=== PATIENT | female | born 1935 | race Caucasian/White ===

== ENCOUNTER 2022-01-21 07:57 | Day surgery (SDC) | payer OTHER ==
[~2022-01-21] VITALS: Ht 157.5 cm; Wt 56.7 kg
[2022-01-21] MEDS: MIDAZOLAM HCL 5 MG/5 ML VIAL ONE ×3 (10:04→10:14)
[2022-01-21] MEDS: fentaNYL CITRATE/PF 100 MCG/2 ML AMP ONE ×2 (10:04→10:07)
[2022-01-21 11:46] VITALS: BP_SYST 132
== END 2022-01-21 11:20 | disposition home or self-care (01) ==
LOC: SDS 07:57 → SMU 08:01 → SDS 11:10
PROVIDERS: ATTEND Internal Medicine
DX: R13.10 Dysphagia, unspecified (principal); K22.2 Esophageal obstruction; K29.50 Unspecified chronic gastritis without bleeding; K20.90 Esophagitis, unspecified without bleeding; Z80.0 Family history of malignant neoplasm of digestive organs; Z20.822 Contact with and (suspected) exposure to COVID-19; Z87.891 Personal history of nicotine dependence
CPT/HCPCS: 43249; 87081; 36415; 43239; 88305; 88312; 88313; 99152; 87426; G0378; J2250; J3010; C1769